=== PATIENT | male | born 1950 | race Caucasian/White ===

== ENCOUNTER 2019-09-12 12:20 | Emergency (ER) | payer MEDICARE ==
[2019-09-12] MEDS ORDERED: Lidocaine 2% Jelly 10 ML Urojet MUCMEM ONE (13:03)
--- NOTE | 2019-09-12 13:09 | EDM.PDOC ---
ED HPI GENERAL MEDICAL PROBLEM - General Chief Complaint: Genitourinary Problem Stated Complaint: PROSTATE ISSUE SENT BY CLINIC Time Seen by Provider: 09/12/19 12:33 Source of Information: Reports: Patient History Limitations: Reports: No Limitations - History of Present Illness INITIAL COMMENTS - FREE TEXT/NARRATIVE: Patient is a 69-year-old male who presents to the emergency department with the inability to empty his bladder for the last 2 days. He states that over the last few years he has been experiencing gradual worsening of urinary retention, for the most part he has been able to manage. Over the last 2 days he has had the urge to void frequently, however when he attempts to go he only voids a couple tablespoons in his estimate. He denies any pain with urination. He does not have a primary care provider and has never been on medications to treat his prostate or seen a provider for this problem in the past. - Related Data Allergies Allergy/AdvReac Type Severity Reaction Status Date / Time No Known Allergies Allergy Verified 09/12/19 12:35 Home Meds: Home Meds Tamsulosin [Tamsulosin 24 Hr] 0.4 mg PO DAILY #30 cap.er 09/12/19 [Rx] Past Medical History - Past Health History Medical/Surgical History: Denies Medical/Surgical History - Past Surgical History HEENT Surgical History: Reports: Oral Surgery Social & Family History - Tobacco Use Smoking Status *Q: Never Smoker - Caffeine Use Caffeine Use: Reports: Coffee, Soda - Recreational Drug Use Recreational Drug Use: No ED ROS GENERAL - Review of Systems Review Of Systems: See Below Constitutional: Reports: No Symptoms. Denies: Fever, Chills, Malaise, Weakness HEENT: Reports: No Symptoms Respiratory: Reports: No Symptoms Cardiovascular: Reports: No Symptoms Endocrine: Reports: No Symptoms GI/Abdominal: Reports: No Symptoms. Denies: Abdominal Pain : Reports: Frequency, Urinary Retention Musculoskeletal: Reports: No Symptoms Skin: Reports: No Symptoms Neurological: Reports: No Symptoms Psychiatric: Reports: No Symptoms Hematologic/Lymphatic: Reports: No Symptoms Immunologic: Reports: No Symptoms ED EXAM, RENAL/ - Physical Exam Exam: See Below Exam Limited By: No Limitations General Appearance: Alert, WD/WN, No Apparent Distress Respiratory/Chest: No Respiratory Distress, Lungs Clear, Normal Breath Sounds, No Accessory Muscle Use, Chest Non-Tender Cardiovascular: Normal Peripheral Pulses, Regular Rate, Rhythm, No Edema, No Gallop, No JVD, No Murmur, No Rub GI/Abdominal: Normal Bowel Sounds, Soft, Non-Tender, No Organomegaly, No Distention, No Abnormal Bruit, No Mass (Male) Exam: Suprapubic Fullness Back Exam: Normal Inspection, Full Range of Motion, NT Neurological: Alert, Oriented, CN II-XII Intact, Normal Cognition, Normal Gait, Normal Reflexes, No Motor/Sensory Deficits Psychiatric: Normal Affect, Normal Mood Skin Exam: Warm, Dry, Intact, Normal Color, No Rash Course - Vital Signs Last Recorded V/S: Last Vital Signs Temp 97.4 F 09/12/19 12:32 Pulse 110 H 09/12/19 12:32 Resp 18 09/12/19 12:32 BP 141/96 H 09/12/19 12:32 Pulse Ox 98 09/12/19 12:32 - Orders/Labs/Meds Orders: Active Orders 24 hr Category Date Time Status Bladder Scan [RC] ASDIRECTED Care 09/12/19 12:36 Active Insert Stevens Catheter [Insert Urinary Catheter] [OM.PC] Care 09/12/19 13:15 Ordered ONETIME Insert Stevens Catheter [Insert Urinary Catheter] [OM.PC] Care 09/13/19 13:15 Ordered ONETIME Urinary Catheter Assessment [RC] ASDIRECTED Care 09/12/19 13:13 Active Labs: Laboratory Tests 09/12/19 09/12/19 09/12/19 Range/Units 12:50 12:50 12:50 WBC 8.59 (4.23-9.07) K/mm3 RBC 4.17 L (4.63-6.08) M/mm3 Hgb 12.9 L (13.7-17.5) gm/dl Hct 40.2 (40.1-51.0) % MCV 96.4 H (79.0-92.2) fl MCH 30.9 (25.7-32.2) pg MCHC 32.1 L (32.2-35.5) g/dl RDW Std Deviation 45.3 H (35.1-43.9) fL Plt Count 214 (163-337) K/mm3 MPV 9.6 (9.4-12.3) fl Neut % (Auto) 83.3 H (34.0-67.9) % Lymph % (Auto) 8.7 L (21.8-53.1) % [place] % (Auto) 6.8 (5.3-12.2) % Eos % (Auto) 0.8 (0.8-7.0) Baso % (Auto) 0.2 (0.1-1.2) % Neut # (Auto) 7.15 H (1.78-5.38) K/mm3 Lymph # (Auto) 0.75 L (1.32-3.57) K/mm3 [place] # (Auto) 0.58 (0.30-0.82) K/mm3 Eos # (Auto) 0.07 (0.04-0.54) K/mm3 Baso # (Auto) 0.02 (0.01-0.08) K/mm3 Manual Slide Review Abnormal smear Sodium 140 (136-145) mEq/L Potassium 4.5 (3.5-5.1) mEq/L Chloride 103 (98-107) mEq/L Carbon Dioxide 26 (21-32) mEq/L Anion Gap 15.5 H (5-15) BUN 23 H (7-18) mg/dL Creatinine 1.3 (0.7-1.3) mg/dL Est Cr Clr Drug Dosing 52.12 mL/min Estimated GFR (MDRD) 54 (>60) mL/min BUN/Creatinine Ratio 17.7 (14-18) Glucose 98 (83-115) mg/dL Calcium 9.6 (8.5-10.1) mg/dL Total Bilirubin 0.6 (0.2-1.0) mg/dL AST 67 H (15-37) U/L ALT 21 (16-63) U/L Alkaline Phosphatase 160 H (46-116) U/L Total Protein 8.1 (6.4-8.2) g/dl Albumin 4.3 (3.4-5.0) g/dl Globulin 3.8 gm/dL Albumin/Globulin Ratio 1.1 (1-2) PSA Screen 341.3 H (0.0-4.0) ng/mL Urine Color (Yellow) Urine Appearance (Clear) Urine pH (5.0-8.0) Ur Specific Avenue (1.005-1.030) Urine Protein (Negative) Urine Glucose (UA) (Negative) Urine Ketones (Negative) Urine Occult Blood (Negative) Urine Nitrite (Negative) Urine Bilirubin (Negative) Urine Urobilinogen (0.2-1.0) Ur Leukocyte Esterase (Negative) Urine RBC (0-5) /hpf Urine WBC (0-5) /hpf Ur Squamous Epith Cells (0-5) /hpf Urine Bacteria (FEW) /hpf Urine Mucus (FEW) /hpf 09/12/19 Range/Units 13:15 WBC (4.23-9.07) K/mm3 RBC (4.63-6.08) M/mm3 Hgb (13.7-17.5) gm/dl Hct (40.1-51.0) % MCV (79.0-92.2) fl MCH (25.7-32.2) pg MCHC (32.2-35.5) g/dl RDW Std Deviation (35.1-43.9) fL Plt Count (163-337) K/mm3 MPV (9.4-12.3) fl Neut % (Auto) (34.0-67.9) % Lymph % (Auto) (21.8-53.1) % [place] % (Auto) (5.3-12.2) % Eos % (Auto) (0.8-7.0) Baso % (Auto) (0.1-1.2) % Neut # (Auto) (1.78-5.38) K/mm3 Lymph # (Auto) (1.32-3.57) K/mm3 [place] # (Auto) (0.30-0.82) K/mm3 Eos # (Auto) (0.04-0.54) K/mm3 Baso # (Auto) (0.01-0.08) K/mm3 Manual Slide Review Sodium (136-145) mEq/L Potassium (3.5-5.1) mEq/L Chloride (98-107) mEq/L Carbon Dioxide (21-32) mEq/L Anion Gap (5-15) BUN (7-18) mg/dL Creatinine (0.7-1.3) mg/dL Est Cr Clr Drug Dosing mL/min Estimated GFR (MDRD) (>60) mL/min BUN/Creatinine Ratio (14-18) Glucose (83-115) mg/dL Calcium (8.5-10.1) mg/dL Total Bilirubin (0.2-1.0) mg/dL AST (15-37) U/L ALT (16-63) U/L Alkaline Phosphatase (46-116) U/L Total Protein (6.4-8.2) g/dl Albumin (3.4-5.0) g/dl Globulin gm/dL Albumin/Globulin Ratio (1-2) PSA Screen (0.0-4.0) ng/mL Urine Color Yellow (Yellow) Urine Appearance Clear (Clear) Urine pH 6.0 (5.0-8.0) Ur Specific Avenue 1.025 (1.005-1.030) Urine Protein Negative (Negative) Urine Glucose (UA) Negative (Negative) Urine Ketones Negative (Negative) Urine Occult Blood Trace-lysed H (Negative) Urine Nitrite Negative (Negative) Urine Bilirubin Negative (Negative) Urine Urobilinogen 0.2 (0.2-1.0) Ur Leukocyte Esterase Negative (Negative) Urine RBC Not seen (0-5) /hpf Urine WBC 0-5 (0-5) /hpf Ur Squamous Epith Cells Not seen (0-5) /hpf Urine Bacteria Moderate H (FEW) /hpf Urine Mucus Not seen (FEW) /hpf Meds: Medications Discontinued Medications Generic Name Dose Route Start Last Admin Trade Name Hank PRN Reason Stop Dose Admin Lidocaine HCl 10 ml 09/12/19 13:03 09/12/19 13:07 Xylocaine 2% Jelly MUCMEM 09/12/19 13:04 10 ml ONETIME ONE Administration Tamsulosin HCl 0.4 mg 09/12/19 13:38 09/12/19 13:45 Flomax PO 09/12/19 13:39 0.4 mg ONETIME ONE Administration - Re-Assessments/Exams Free Text/Narrative Re-Assessment/Exam: Patient is a 69-year-old male who presents with complaints of urinary retention with symptoms significantly worse over the last 2 days. Denies any known history of prostate dysfunction, however he has not seen a primary care provider in quite some time. I ordered a CBC, CMP, urinalysis, and a postvoid residual bladder scan. 09/12/19 13:11 I was notified by nursing staff that his post void residual bladder scan showed greater than 1860 mls. I have ordered Stevens catheter insertion. 09/12/19 14:03 After Stevens catheter insertion, 2125 mils of clear yellow urine was returned into the catheter bag. Patient's PSA was found to be significantly elevated at 341. Blood work was otherwise unremarkable. Urinalysis was negative for any infection. Discussed these findings with the patient and emphasized the importance that he follow-up with urology. I will put in a referral to Dr. Bearden in [place]. Recommended that he call today to set up an appointment at the next available. I will start him on Flomax daily with first dose given in ER. Patient verbalized understanding of this. Discharge instructions as documented. Departure - Departure Time of Disposition: 14:06 Disposition: Home, Self-Care 01 Condition: Good Clinical Impression: Urinary retention, Elevated PSA - Discharge Information *PRESCRIPTION DRUG MONITORING PROGRAM REVIEWED*: No *COPY OF PRESCRIPTION DRUG MONITORING REPORT IN PATIENT ANTIONE: No Prescriptions: Tamsulosin [Tamsulosin 24 Hr] 0.4 mg PO DAILY #30 cap.er Instructions: Indwelling Urinary Catheter Care, Adult, Prostate-Specific Antigen Test Referrals: Jose Bearden MD [Ordering Only Provider] - Forms: ED Department Discharge Additional Instructions: You were seen in the emergency department today for the being unable to empty your bladder. A catheter was inserted in 2100 mls of urine was emptied from your bladder. Blood work was completed and was significant for a prostate specific antigen that was significantly elevated. Blood work was otherwise normal. Urinalysis was negative for any infection. As we discussed, it is imperative that you follow-up with urology at the next available appointment. I would recommend Dr. Bearden or one of his associates. The number to schedule as listed below. A prescription for Flomax has been sent to [facility]. Take this medication daily as prescribed to help improve your urinary flow. It would also be beneficial for you to establish care with a primary care provider in the clinic to oversee your health care. If you would like to set up an appointment with a provider, the number to do so is [phone]. If you should experience any issues with her catheter or any other symptoms of concern, please not hesitate to return to the emergency department. [facility] - [address] [address] Appointments: [phone] Sepsis Event Note (ED) - Evaluation Sepsis Screening Result: No Definite Risk - Focused Exam Vital Signs: Vital Signs Temp Pulse Resp BP Pulse Ox 09/12/19 12:32 97.4 F 110 H 18 141/96 H 98 - My Orders Last 24 Hours: My Active Orders 09/12/19 12:36 Bladder Scan [RC] ASDIRECTED 09/12/19 13:13 Urinary Catheter Assessment [RC] ASDIRECTED 09/12/19 13:15 Insert Stevens Catheter [Insert Urinary Catheter] [OM.PC] ONETIME 09/13/19 13:15 Insert Stevens Catheter [Insert Urinary Catheter] [OM.PC] ONETIME - Assessment/Plan Last 24 Hours: My Active Orders 09/12/19 12:36 Bladder Scan [RC] ASDIRECTED 09/12/19 13:13 Urinary Catheter Assessment [RC] ASDIRECTED 09/12/19 13:15 Insert Stevens Catheter [Insert Urinary Catheter] [OM.PC] ONETIME 09/13/19 13:15 Insert Stevens Catheter [Insert Urinary Catheter] [OM.PC] ONETIME
[2019-09-12] MEDS ORDERED: Tamsulosin 0.4 MG Cap.ER PO ONE (13:38)
== END 2019-09-12 14:40 | disposition home or self-care (01) ==
LOC: JD.ED 12:20
DX: R33.9 Retention of urine, unspecified (principal); R97.20 Elevated prostate specific antigen [PSA]
CPT/HCPCS: 36415; 51702; 51798; 80053; 81001; 85025; 99283; A9270; G0103

== ENCOUNTER → 2020-09-02 | Day surgery (SDC) | payer MEDICARE ==
[~2020-09-02] MED LIST: Brimonidine 0.2% Ophth Soln 5 ML Bottle EYELF SCH; Cefuroxime 10 MG/ML SYRINGE EYELF SCH; Lidocaine 1% PF 2 ML SDV INJECT SCH; Phenylephrine 2.5% Ophth Soln 2 ML Bot EYELF SCH; Pilocarpine 4% Ophth Soln 15 ML Bot EYELF SCH; Polymyxin B/Trimethoprim 10 ML Bottle EYELF SCH; Tetracaine HCl/PF 0.5% 4 ML Bottle EYEBOTH SCH; Tropicamide 1% Ophth Soln 15 ML Bottle EYELF SCH
[2020-09-02] MEDS: Polymyxin B/Trimethoprim 10 ML Bottle EYELF SCH ×4 (08:01→11:39)
[2020-09-02] MEDS: Brimonidine 0.2% Ophth Soln 5 ML Bottle EYELF SCH ×4 (08:06→11:38)
--- NOTE | 2020-09-02 08:06 | PCM.PREANE ---
Preanesthetic Assessment - Procedure Proposed Procedure: left eye extraction cataract with implant - Anesthesia/Transfusion/Family Hx Anesthesia History: No Prior Anesthesia Family History of Anesthesia Reaction: No Transfusion History: No Prior Transfusion(s) Intubation History: Unknown - Review of Systems General: No Symptoms Pulmonary: No Symptoms Cardiovascular: No Symptoms Gastrointestinal: No Symptoms Neurological: No Symptoms Other: Reports: None - Physical Assessment NPO Status Date: 09/01/20 NPO Status Time: 07:00 Height: 1.75 m Weight: 74.843 kg ASA Class: 2 Mental Status: Alert & Oriented x3 Airway Class: Mallampati = 1 Dentition: Reports: Broken Tooth/Teeth (right front tooth chipped ), Missing Tooth/Teeth (multiple extractions ) Thyro-Mental Finger Breadths: 3 Mouth Opening Finger Breadths: 5 ROM/Head Extension: Full Lungs: Clear to Auscultation, Normal Respiratory Effort Cardiovascular: Regular Rate, Regular Rhythm - Allergies Allergies/Adverse Reactions: Allergies Allergy/AdvReac Type Severity Reaction Status Date / Time No Known Allergies Allergy Verified 09/01/20 14:19 - Blood Blood Available: No - Anesthesia Plan Pre-Op Medication Ordered: None - Acknowledgements Anesthesia Type Planned: MAC Pt an Appropriate Candidate for the Planned Anesthesia: Yes Alternatives and Risks of Anesthesia Discussed w Pt/Guardian: Yes Pt/Guardian Understands and Agrees with Anesthesia Plan: Yes PreAnesthesia Questionnaire - Past Health History Medical/Surgical History: Denies Medical/Surgical History - Past Surgical History HEENT Surgical History: Reports: Oral Surgery - HOME MEDS Home Medications: Home Meds Tamsulosin [Tamsulosin 24 Hr] 0.4 mg PO DAILY #30 cap.er 09/12/19 [Rx] Calcium Carbonate [Calcium] 500 mg PO DAILY 09/01/20 [History] Carboxymethylcellulose Sodium [Artificial Tears] 1 dose EYEBOTH ASDIRECTED PRN 09/01/20 [History] Degarelix [Firmagon] 120 mg .ROUTE ASDIRECTED 09/01/20 [History] - CURRENT (IN HOUSE) MEDS Current Meds: Current Medications Brimonidine Tartrate (Brimonidine 0.2% Ophth Soln 5 Ml Bottle) 0 ml EYELF ASDIRECTED KAREN Stop: 09/02/20 18:00 Cefuroxime Sodium (Cefuroxime 10 Mg/Ml Syringe) 0 mg EYELF ASDIRECTED KAREN Stop: 09/02/20 18:00 Lidocaine HCl (Lidocaine 1% Pf 2 Ml Sdv) 0 ml INJECT ASDIRECTED KAREN Stop: 09/02/20 18:00 Phenylephrine HCl (Phenylephrine 2.5% Ophth Soln 2 Ml Bot) 0 ml EYELF ASDIRECTED KAREN Stop: 09/02/20 18:00 Pilocarpine HCl (Pilocarpine 4% Ophth Soln 15 Ml Bot) 0 ml EYELF ASDIRECTED KAREN Stop: 09/02/20 18:00 Polymyxin/Trimethoprim Sulfate (Polymyxin B/Trimethoprim 10 Ml Bottle) 0 ml EYELF ASDIRECTED KAREN Stop: 09/02/20 18:00 Tetracaine HCl (Tetracaine Hcl/Pf 0.5% 4 Ml Bottle) 0 ml EYEBOTH ASDIRECTED KAREN Stop: 09/02/20 18:00 Tropicamide (Tropicamide 1% Ophth Soln 15 Ml Bottle) 0 ml EYELF ASDIRECTED KAREN Stop: 09/02/20 18:00 Discontinued Medications Brimonidine Tartrate (Brimonidine 0.2% Ophth Soln 5 Ml Bottle) 0 ml EYELF ASDIRECTED KAREN Stop: 09/02/20 18:00 Cefuroxime Sodium (Cefuroxime 10 Mg/Ml Syringe) 0 mg EYELF ASDIRECTED KAREN Stop: 09/02/20 18:00 Lidocaine HCl (Lidocaine 1% Pf 2 Ml Sdv) 0 ml INJECT ASDIRECTED KAREN Stop: 09/02/20 18:00 Phenylephrine HCl (Phenylephrine 2.5% Ophth Soln 2 Ml Bot) 0 ml EYELF ASDIRECTED KAREN Stop: 09/02/20 18:00 Pilocarpine HCl (Pilocarpine 4% Ophth Soln 15 Ml Bot) 0 ml EYELF ASDIRECTED KAREN Stop: 09/02/20 18:00 Polymyxin/Trimethoprim Sulfate (Polymyxin B/Trimethoprim 10 Ml Bottle) 0 ml EYELF ASDIRECTED KAREN Stop: 09/02/20 18:00 Tetracaine HCl (Tetracaine Hcl/Pf 0.5% 4 Ml Bottle) 0 ml EYEBOTH ASDIRECTED KAREN Stop: 09/02/20 18:00 Tropicamide (Tropicamide 1% Ophth Soln 15 Ml Bottle) 0 ml EYELF ASDIRECTED KAREN Stop: 09/02/20 18:00
[2020-09-02] MEDS: Phenylephrine 2.5% Ophth Soln 2 ML Bot EYELF SCH ×6 (08:11→11:37)
[2020-09-02] MEDS: Tropicamide 1% Ophth Soln 15 ML Bottle EYELF SCH ×4 (08:16→08:58)
[2020-09-02] MEDS: Tetracaine HCl/PF 0.5% 4 ML Bottle EYEBOTH SCH ×3 (09:17→11:37)
[2020-09-02] MEDS: Lidocaine 1% PF 2 ML SDV INJECT SCH ×2 (09:36→11:38)
[2020-09-02] MEDS: Cefuroxime 10 MG/ML SYRINGE EYELF SCH ×2 (09:45→11:38)
[2020-09-02] MEDS: Pilocarpine 4% Ophth Soln 15 ML Bot EYELF SCH ×2 (09:46→11:39)
--- NOTE | 2020-09-02 09:48 | PCM48HPAN ---
Post Anesthesia Note - EVALUATION WITHIN 48HRS OF ANESTHETIC Vital Signs in Normal Range: Yes Patient Participated in Evaluation: Yes Respiratory Function Stable: Yes Airway Patent: Yes Cardiovascular Function Stable: Yes Hydration Status Stable: Yes Pain Control Satisfactory: Yes Nausea and Vomiting Control Satisfactory: Yes Mental Status Recovered: Yes Vital Signs: Last Vital Signs Temp 36.3 C 09/02/20 07:45 Pulse 58 L 09/02/20 07:45 Resp 16 09/02/20 07:45 BP 127/72 09/02/20 07:45 Pulse Ox 98 09/02/20 07:45
== END ==
LOC: JD.SDS 07:54
PROVIDERS: ATTEND Ophthalmology
DX: H25.812 Combined forms of age-related cataract, left eye (principal); Z98.890 Other specified postprocedural states
CPT/HCPCS: 66984; J0697; C1780

== ENCOUNTER 2021-04-10 10:45 | Inpatient (IN) | payer MEDICARE ==
[2021-04-10] MEDS ORDERED: Sodium Chloride 0.9% 10 ML Syringe FLUSH PRN (11:48)
[2021-04-10] MEDS ORDERED: Ibuprofen 600 MG Tab PO ONE (12:04)
[2021-04-10] MEDS ORDERED: Ibuprofen 600 MG Tab ONE (12:05)
[2021-04-10] MEDS ORDERED: Sodium Chloride 0.9% 500 ML IV ONE (12:51)
[2021-04-10 14:16] LABS: CORONAVIRUS COVID-19 NAA NEGATIVE (NEGATIVE)
[2021-04-10] MEDS ORDERED: Sodium Chloride 0.9% 10 ML Syringe FLUSH ONE (14:36)
[2021-04-10] MEDS ORDERED: Iopamidol 755 Mg/ML 100 ML Bottle IVPUSH ONE (14:36)
[2021-04-10] MEDS ORDERED: Sodium Chloride 0.9% 100 ML IV SCH (14:45)
[2021-04-10] MEDS ORDERED: Adenosine 12 MG/4 ML SDV ONE (15:35)
[2021-04-10] MEDS ORDERED: Adenosine 6 MG/2 ML SDV ONE (15:35)
[2021-04-10] MEDS ORDERED: Diltiazem 50 MG/10 ML SDV ONE (15:45)
[2021-04-10] MEDS ORDERED: Diltiazem 50 MG/10 ML SDV IVPUSH ONE (15:47)
[2021-04-10] MEDS ORDERED: Diltiazem 100 MG in Sodium Chloride 0.9% 100 ML IV SCH (16:00)
[2021-04-10] MEDS ORDERED: Sodium Chloride 0.9% 1,000 ML IV SCH (16:00)
[2021-04-10] MEDS ORDERED: Metoprolol Tartrate 5 MG/5 ML SDV IVPUSH ONE (17:40)
[2021-04-10] MEDS ORDERED: Digoxin 500 MCG/2 ML Amp IVPUSH ONE (18:08)
[2021-04-10] MEDS ORDERED: Pantoprazole 40 MG Vial IVPUSH ONE (18:35)
[2021-04-10] MEDS ORDERED: Temazepam 7.5 MG Cap PO PRN (18:35)
[2021-04-10] MEDS ORDERED: Carboxymethylcellulose Sodium 1% Ophth Gel 15 ML Bottle EYEBOTH PRN (18:44)
[2021-04-10] MEDS: Acetaminophen/HYDROcodone 325-5 MG Tab PO PRN (20:49)
[2021-04-10] MEDS: Enoxaparin 40 MG/0.4 ML Syringe SUBCUT SCH (20:56)
[2021-04-10] MEDS: Dextrose 5%-0.45% NaCl 1,000 ML IV SCH (20:58)
[2021-04-11] MEDS: Digoxin 500 MCG/2 ML Amp IVPUSH SCH ×2 (00:07→06:03)
[2021-04-11] MEDS: Acetaminophen/HYDROcodone 325-5 MG Tab PO PRN ×2 (01:04→08:17)
[2021-04-11] MEDS: Dextrose 5%-0.45% NaCl 1,000 ML IV SCH (04:58)
[2021-04-11] MEDS: Calcium Carbonate 500 MG Tab.Chew PO SCH (08:10)
[2021-04-11] MEDS: Tamsulosin 0.4 MG Cap.ER PO SCH (08:10)
[2021-04-11] MEDS: Enoxaparin 40 MG/0.4 ML Syringe SUBCUT SCH (08:10)
[2021-04-11] MEDS ORDERED: Potassium Chloride 20 MEQ Tab.ER PO ONE (10:13)
[2021-04-11] MEDS ORDERED: Sodium Chloride 0.9% 500 ML IV SCH (10:30)
[2021-04-11] MEDS: Dextrose 5%-Lact Ringers w/KCl 1,000 ML IV SCH (11:06)
[2021-04-11] MEDS: Ondansetron 8 MG in Sodium Chloride 0.9% 50 ML IV PRN ×2 (11:21→18:23)
[2021-04-11] MEDS: Promethazine 25 MG Tab PO PRN (12:56)
[2021-04-11] MEDS: Digoxin 250 MCG Tab PO SCH (18:25)
[2021-04-12] MEDS: Acetaminophen/HYDROcodone 325-5 MG Tab PO PRN (01:41)
[2021-04-12] MEDS: Promethazine 25 MG Tab PO PRN ×2 (01:41→07:47)
[2021-04-12] MEDS: Enoxaparin 40 MG/0.4 ML Syringe SUBCUT SCH (08:02)
[2021-04-12] MEDS: Calcium Carbonate 500 MG Tab.Chew PO SCH (08:50)
[2021-04-12] MEDS ORDERED: DEXTROSE 5% IV ONE (09:06)
[2021-04-12] MEDS ORDERED: LACT RINGERS IV ONE (09:06)
[2021-04-12] MEDS ORDERED: KCL IV ONE (09:06)
[2021-04-12] MEDS: Metoclopramide 10 MG/2 ML SDV IVPUSH PRN ×2 (09:16→20:14)
[2021-04-12] MEDS: Potassium Chloride 20 MEQ Tab.ER PO SCH (09:35)
[2021-04-12] MEDS: Tamsulosin 0.4 MG Cap.ER PO SCH (09:35)
[2021-04-12 10:46] LABS: CORONAVIRUS COVID-19 NAA NEGATIVE (NEGATIVE)
[2021-04-12] MEDS ORDERED: cefTRIAXone 2 GM in Sodium Chloride 0.9% 100 ML IV ONE ×2 (11:00)
[2021-04-12] MEDS: Digoxin 250 MCG Tab PO SCH (11:11)
[2021-04-12] MEDS: Acetaminophen 325 MG Tab PO PRN (11:15)
[2021-04-12] MEDS: Dextrose 5%-Lact Ringers w/KCl 1,000 ML IV SCH (11:41)
[2021-04-12] MEDS ORDERED: Diatrizoate Meglumine/Diatrizoate Sodium 37% 120 ML Bottle PO ONE (11:57)
[2021-04-12] MEDS ORDERED: Sodium Chloride 0.9% 10 ML Syringe FLUSH PRN (11:57)
[2021-04-12] MEDS ORDERED: Iopamidol 612 MG/ML 100 ML Bottle IVPUSH ONE (11:57)
[2021-04-12] MEDS: D5 1/2 NS w/ 20 mEq/L KCl 1,000 ML IV SCH (20:18)
[2021-04-13] MEDS: Acetaminophen/HYDROcodone 325-5 MG Tab PO PRN (00:35)
[2021-04-13] MEDS: Calcium Carbonate 500 MG Tab.Chew PO SCH (08:01)
[2021-04-13] MEDS: Potassium Chloride 20 MEQ Tab.ER PO SCH (08:01)
[2021-04-13] MEDS: Tamsulosin 0.4 MG Cap.ER PO SCH (08:01)
[2021-04-13] MEDS: Metoclopramide 10 MG/2 ML SDV IVPUSH PRN (08:02)
[2021-04-13] MEDS ORDERED: Enoxaparin 40 MG/0.4 ML Syringe SUBCUT SCH (09:00)
[2021-04-13] MEDS ORDERED: Metoprolol Tartrate 5 MG/5 ML SDV IVPUSH ONE ×2 (09:00→15:45)
[2021-04-13] MEDS ORDERED: Calcium Gluconate 1 GM in Sodium Chloride 0.9% 100 ML IV SCH (09:15)
[2021-04-13] MEDS ORDERED: Metoprolol Tartrate 25 MG Tab PO SCH (10:15)
[2021-04-13] MEDS: D5 1/2 NS w/ 20 mEq/L KCl 1,000 ML IV SCH (10:33)
[2021-04-13] MEDS ORDERED: cefTRIAXone 1 GM in Sodium Chloride 0.9% 100 ML IV SCH (11:00)
[2021-04-13] MEDS: Digoxin 250 MCG Tab PO SCH (12:35)
[2021-04-13] MEDS: cefTRIAXone 1 GM in Sodium Chloride 0.9% 100 ML IV SCH (12:36)
[2021-04-13] MEDS ORDERED: Lactated Ringers 500 ML IV ONE (16:15)
[2021-04-13] MEDS ORDERED: Sodium Chloride 0.9% 500 ML IV SCH (20:33)
[2021-04-13] MEDS: Apixaban 5 MG Tab PO SCH (20:43)
[2021-04-13] MEDS: Metoprolol Tartrate 50 MG Tab PO SCH (20:43)
[2021-04-14] MEDS ORDERED: Sodium Chloride 0.9% 500 ML IV ONE ×2 (00:58→03:31)
[2021-04-14] MEDS: D5 1/2 NS w/ 20 mEq/L KCl 1,000 ML IV SCH (04:41)
[2021-04-14] MEDS: Midodrine 5 MG Tab PO SCH ×4 (05:23→23:46)
[2021-04-14] MEDS: Tamsulosin 0.4 MG Cap.ER PO SCH (09:48)
[2021-04-14] MEDS: Apixaban 5 MG Tab PO SCH ×2 (09:48→21:13)
[2021-04-14] MEDS: Potassium Chloride 20 MEQ Tab.ER PO SCH (09:48)
[2021-04-14] MEDS: Calcium Carbonate 500 MG Tab.Chew PO SCH (09:48)
[2021-04-14] MEDS: Metoprolol Tartrate 50 MG Tab PO SCH (09:50)
[2021-04-14] MEDS: cefTRIAXone 1 GM in Sodium Chloride 0.9% 100 ML IV SCH (11:43)
[2021-04-14] MEDS: Digoxin 250 MCG Tab PO SCH (11:50)
[2021-04-15] MEDS: Midodrine 5 MG Tab PO SCH (06:24)
[2021-04-15] MEDS: Calcium Carbonate 500 MG Tab.Chew PO SCH (08:24)
[2021-04-15] MEDS: Diltiazem IR 30 MG Tab PO SCH ×2 (08:25→14:36)
[2021-04-15] MEDS: Tamsulosin 0.4 MG Cap.ER PO SCH (08:25)
[2021-04-15] MEDS: Apixaban 5 MG Tab PO SCH ×2 (08:25→20:57)
[2021-04-15] MEDS ORDERED: Sodium Phosphate 30 MMOLE in Sodium Chloride 0.9% 250 ML IV ONE (09:00)
[2021-04-15] MEDS: Megestrol Susp 40 MG/ML 10 ML UD Cup PO SCH (09:00)
[2021-04-15] MEDS ORDERED: Sodium Chloride 0.9% 500 ML IV ONE (09:56)
[2021-04-15] MEDS ORDERED: Diltiazem 50 MG/10 ML SDV ONE (11:20)
[2021-04-15] MEDS ORDERED: Diltiazem 50 MG/10 ML SDV IVPUSH ONE (11:25)
[2021-04-15] MEDS: Amiodarone 200 MG Tab PO SCH ×2 (11:30→20:57)
[2021-04-15] MEDS: Digoxin 250 MCG Tab PO SCH (11:33)
[2021-04-15] MEDS: cefTRIAXone 1 GM in Sodium Chloride 0.9% 100 ML IV SCH (11:40)
[2021-04-15] MEDS ORDERED: Diltiazem 100 MG in Sodium Chloride 0.9% 100 ML IV SCH (11:45)
[2021-04-15] MEDS: Albumin 25% 12.5 GM in Premix Bag 1 BAG IV SCH ×2 (13:19→14:22)
[2021-04-15] MEDS ORDERED: Furosemide 20 MG/2 ML VIAL IVPUSH ONE (17:15)
[2021-04-15] MEDS: Acetaminophen 325 MG Tab PO PRN (21:55)
[2021-04-16] MEDS: Diltiazem IR 30 MG Tab PO SCH (07:26)
[2021-04-16] MEDS: Tamsulosin 0.4 MG Cap.ER PO SCH (08:05)
[2021-04-16] MEDS: Apixaban 5 MG Tab PO SCH (08:05)
[2021-04-16] MEDS: Calcium Carbonate 500 MG Tab.Chew PO SCH (08:06)
[2021-04-16] MEDS: Megestrol Susp 40 MG/ML 10 ML UD Cup PO SCH (08:06)
[2021-04-16] MEDS: Amiodarone 200 MG Tab PO SCH (08:11)
[2021-04-16] MEDS ORDERED: Furosemide 20 MG/2 ML VIAL IVPUSH ONE (10:15)
[2021-04-16] MEDS: Digoxin 250 MCG Tab PO SCH (12:08)
[2021-04-16] MEDS: cefTRIAXone 1 GM in Sodium Chloride 0.9% 100 ML IV SCH (12:09)
== END 2021-04-16 16:15 | disposition home or self-care (01) | DRG 280 ==
LOC: JD.ED 10:45 → JD.ICU 18:35 → JD.MS 04-13 19:37 → JD.ICU 04-14 09:29
PROVIDERS: ADMIT Pediatrics; ATTEND Pediatrics
PROC: 30233N1 Transfusion of Nonautologous Red Blood Cells into Peripheral Vein, Percutaneous Approach (ICD-10-PCS; principal; 2021-04-11)
DX: I48.92 Unspecified atrial flutter (principal); E43 Unspecified severe protein-calorie malnutrition; I21.A1 Myocardial infarction type 2; C79.31 Secondary malignant neoplasm of brain; E87.2 Acidosis; C79.51 Secondary malignant neoplasm of bone; C78.7 Secondary malignant neoplasm of liver and intrahepatic bile duct; N39.0 Urinary tract infection, site not specified; Z66 Do not resuscitate; Z20.822 Contact with and (suspected) exposure to COVID-19; I50.9 Heart failure, unspecified; D50.8 Other iron deficiency anemias; C61 Malignant neoplasm of prostate; E88.09 Other disorders of plasma-protein metabolism, not elsewhere classified; I48.91 Unspecified atrial fibrillation; E87.6 Hypokalemia; I95.9 Hypotension, unspecified; Z79.899 Other long term (current) drug therapy; Z68.21 Body mass index [BMI] 21.0-21.9, adult
CPT/HCPCS: 0240U; 36415; 36430; 36600; 51701; 51702; 70450; 71045; 71275; 74177; 80048; 80053; 80162; 81001; 82803; 83605; 83735; 83880; 84100; 84443; 84484; 85025; 85379; 85652; 86140; 86850; 86900; 86901; 86922; 87040; 93005; 93306; 93970; 94760; 96374; 96375; 97110; 97116; 97161; 97530; 99285; 93010; A9270-GY; C9113; J0153; J0282; J0610; J0696; J1160; J1650; J1940; J2405; J2765; J3480; J3490; J7030; J7042; J7050; J7120; J8597; P9016; P9047; Q9963; Q9967

== ENCOUNTER 2021-05-09 21:56 | Emergency (ER) | payer MEDICARE ==
[2021-05-10] MEDS: Lidocaine 2% Jelly 10 ML Urojet ONE (00:42)
[2021-05-10] MEDS: Lidocaine 2% Jelly 10 ML Urojet MUCMEM ONE (00:42)
== END 2021-05-09 23:20 | disposition home or self-care (01) ==
LOC: JD.ED 21:56
DX: T83.098A Other mechanical complication of other urinary catheter, initial encounter (principal); Z79.899 Other long term (current) drug therapy; Z79.01 Long term (current) use of anticoagulants
CPT/HCPCS: 51702; 99283-25

== ENCOUNTER 2021-05-13 04:59 | Emergency (ER) | payer MEDICARE | END 2021-05-13 07:30 | disposition home or self-care (01) | LOC: JD.ED 04:59 | DX: T83.098A Other mechanical complication of other urinary catheter, initial encounter (principal); I48.91 Unspecified atrial fibrillation; Z79.899 Other long term (current) drug therapy; Z79.01 Long term (current) use of anticoagulants | CPT/HCPCS: 51702; 87086; 87088; 87186; 99283-25 ==